=== PATIENT | male | born 1930 | race Caucasian/White ===

== ENCOUNTER 2016-06-11 14:56 | Emergency (ER) | payer MEDICARE, OTHER ==
[2016-06-11 15:23] VITALS: BP 230/82
[2016-06-11] MEDS ORDERED: 50% Dextrose in Water 50 ML Syringe IVPUSH ONE ×3 (16:48→19:05)
--- NOTE | 2016-06-11 17:25 | EDM.PDOC ---
ED HPI GI/ABDOMINAL - General Chief Complaint: Abdominal Pain Stated Complaint: ABDOMINAL PAIN/COLD SWEATS Time Seen by Provider: 06/11/16 15:31 Source of Information: Reports: Patient, RN notes reviewed - History of Present Illness INITIAL COMMENTS - FREE TEXT/NARRATIVE: 85-year-old gentleman reasons to ED with upper abdominal discomfort yesterday. This morning he had an episode of "breaking out in a sweat". He has not had any noticeable abdominal discomfort today. He states he did have some mild nausea yesterday but no vomiting. He did take some Pepto-Bismol yesterday when he was having the abdominal discomfort. He has had one dark stools since that time. No gross rectal bleeding. No chest pain or difficulty breathing. He states he does have history of metastatic prostate cancer. He also does have history of hypertension and type 2 diabetes. - Related Data Allergies/ADRs: Allergies Allergy/AdvReac Type Severity Reaction Status Date / Time Sulfa (Sulfonamide Allergy Itching Verified 06/11/16 15:23 Antibiotics) Home Meds: Home Meds Calcipotriene [Calcitrene] 1 applic TOP BEDTIME 06/11/16 [History] Enzalutamide [Xtandi] 160 mg PO DAILY 06/11/16 [History] glipiZIDE [Glucotrol] 10 mg PO BID 06/11/16 [History] Past Medical History HEENT History: Reports: Impaired vision Cardiovascular History: Reports: Hypertension Gastrointestinal History: Reports: Diverticulosis Genitourinary History: 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 disorder Neurological History: Reports: Other (see below) Other Neuro History: confusion Psychiatric History: Reports: Anxiety, Depression Endocrine/Metabolic History: Reports: Diabetes, type II Oncologic (Cancer) History: 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 Dermatologic History: Reports: Psoriasis - Past Surgical History HEENT Surgical History: Reports: Tonsillectomy Male Surgical History: 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ctomy Social & Family History - Family History Family Medical History: Noncontributory Oncologic: 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, Other (see below) Other Oncologic Family History: melanoma - Tobacco Use Smoking Status *Q: Former Smoker Years of Tobacco use: 16 Packs/Tins Daily: 0.5 Used Tobacco, but Quit: No - Caffeine Use Caffeine Use: Reports: Coffee - Recreational Drug Use Recreational Drug Use: No ED ROS GENERAL - Review of Systems Review Of Systems: See Below Constitutional: Reports: diaphoresis (Mild this past morning and gone). Denies : fever, chills HEENT: Denies: Sinus problem, Throat pain Respiratory: Denies: Shortness of Breath, Wheezing, Pleuritic Chest Pain Cardiovascular: Denies: Chest pain GI/Abdominal: Reports: Abdominal pain (Upper abdominal discomfort yesterday, gone), Nausea (Gone), Other (He has had one dark stool either earlier today her last evening, that was after taking Pepto-Bismol). Denies: Hematochezia, Melena , Vomiting Musculoskeletal: Denies: back pain (nothing worse than usual chronic achy discomfort), leg pain Skin: Reports: no symptoms Neurological: Reports: Weakness (Mild, gone). Denies: Trouble Speaking, Difficulty Walking ED EXAM, GI/ABD - Physical Exam Exam: See Below General Appearance: alert, no apparent distress Eyes: bilateral: normal appearance Throat/Mouth: Normal inspection Head: atraumatic. No: facial swelling Neck: supple, full range of motion, other (No JVD) Respiratory/Chest: no respiratory distress, lungs clear, normal breath sounds Cardiovascular: regular rate, rhythm GI/Abdominal: soft, non tender. No: guarding Rectal (Males) Exam: Normal exam, Heme - stool Back Exam: No: CVA tenderness (L), CVA tenderness (R) Neurological: alert, oriented, no motor/sensory deficits Skin Exam: Warm, Dry, Normal color EKG INTERPRETATION EKG Date: 06/11/16 Rhythm: NSR [place]: normal P-wave: present QRS: normal ST-T: normal Course - Vital Signs Last Recorded V/S: Last Vital Signs Temp 97.0 F 06/11/16 15:18 Pulse 81 06/11/16 15:18 Resp 16 06/11/16 15:18 BP 230/82 H 06/11/16 15:18 Pulse Ox 98 06/11/16 15:18 - Orders/Labs/Meds Orders: Active Orders 24 hr Category Date Time Status EKG 12 Lead [EKG Documentation Completion] [RC] STAT Care 06/11/16 17:24 Active Labs: Laboratory Tests 06/11/16 06/11/16 Range/Units 15:55 15:55 WBC 17.26 H (4.23-9.07) K/mm3 RBC 3.98 L (4.63-6.08) M/mm3 Hgb 11.9 L (13.7-17.5) gm/L Hct 36.0 L (40.1-51.0) % MCV 90.5 (79.0-92.2) fl MCH 29.9 (25.7-32.2) pg MCHC 33.1 (32.2-35.5) g/dl RDW Std Deviation 47.4 H (35.1-43.9) fL Plt Count 161 L (163-337) K/mm3 MPV 11.8 (9.4-12.3) fl Neut % (Auto) 93.6 H (34.0-67.9) % Lymph % (Auto) 1.2 L (21.8-53.1) % [place] % (Auto) 4.8 L (5.3-12.2) % Eos % (Auto) 0 L (0.8-7.0) Baso % (Auto) 0.1 (0.1-1.2) % Neut # (Auto) 16.16 H (1.78-5.38) K/mm3 Lymph # (Auto) 0.21 L (1.32-3.57) K/mm3 [place] # (Auto) 0.83 H (0.30-0.82) K/mm3 Eos # (Auto) 0.00 L (0.04-0.54) K/mm3 Baso # (Auto) 0.01 (0.01-0.08) K/mm3 Manual Slide Review Abnormal smear Sodium 137 (136-145) mEq/L Potassium 3.6 (3.5-5.1) mEq/L Chloride 101 (98-107) mEq/L Carbon Dioxide 25 (21-32) mEq/L Anion Gap 14.6 (5-15) BUN 36 H (7-18) mg/dL Creatinine 1.9 H (0.7-1.3) mg/dL Est Cr Clr Drug Dosing 24.28 mL/min Estimated GFR (MDRD) 34 (>60) mL/min BUN/Creatinine Ratio 18.9 H (14-18) Glucose 54 L (83-115) mg/dL Calcium 9.6 (8.5-10.1) mg/dL Total Bilirubin 1.4 H (0.2-1.0) mg/dL AST 74 H (15-37) U/L ALT 97 H (16-63) U/L Alkaline Phosphatase 124 H (46-116) U/L Total Protein 6.9 (6.4-8.2) g/dl Albumin 3.5 (3.4-5.0) g/dl Globulin 3.4 gm/dL Albumin/Globulin Ratio 1.0 (1-2) Meds: Medications Discontinued Medications Generic Name Dose Route Start Last Admin Trade Name Katerina PRN Reason Stop Dose Admin Dextrose/Water 25 ml 06/11/16 16:48 06/11/16 16:52 Dextrose 50% In Water IVPUSH 06/11/16 16:49 25 ml ONETIME ONE Administration - Re-Assessments/Exams Free Text/Narrative Re-Assessment/Exam: 06/11/16 17:38 labs are as documented. Serum glucose came back low at 54. Therefore he was allowed to drink some orange juice and also given one half amp D50 IV. He has remained alert, sitting, talkative not showing any clinical symptoms of hypoglycemia. Hemoglobin today is 11.9. Creatnine is elevated at 1.9 , CO2 was normal and anion gap also fine at 14.6. Potassium was fine at 3.6. Apparently that has been low in the past. I am waiting on an EKG at this time. That is fine we will then plan to let him go home. Departure - Departure Time of Disposition: 17:44 Disposition: Home, Self-Care 01 Condition: fair Clinical Impression: Abdominal pain Qualifiers: Abdominal location: upper abdomen, unspecified Qualified Code(s): R10.10 - Upper abdominal pain, unspecified Instructions: Abdominal Pain, Adult, [id number] Forms: ED Department Discharge Additional Instructions: Continue current medications, be sure to drink plenty of water to maintain hydration. Ativan one half of a 0.5 mg tablets twice daily as needed for stress and anxiety, followup with your medical provider as planned, return to ED as needed. - My Orders Last 24 Hours: My Active Orders 06/11/16 17:24 EKG 12 Lead [EKG Documentation Completion] [RC] STAT - Assessment/Plan Last 24 Hours: My Active Orders 06/11/16 17:24 EKG 12 Lead [EKG Documentation Completion] [RC] STAT
== END 2016-06-11 19:20 | disposition home or self-care (01) ==
LOC: JD.ED 14:56
DX: R10.10 Upper abdominal pain, unspecified (principal); C61 Malignant neoplasm of prostate; C79.9 Secondary malignant neoplasm of unspecified site; Z88.2 Allergy status to sulfonamides; I10 Essential (primary) hypertension; E11.649 Type 2 diabetes mellitus with hypoglycemia without coma; Z79.84 Long term (current) use of oral hypoglycemic drugs; F32.9 Major depressive disorder, single episode, unspecified; F41.9 Anxiety disorder, unspecified; Z79.899 Other long term (current) drug therapy
CPT/HCPCS: 36415; 80053; 82962; 85025; 93005; 96374; 96376; 99284; J7060

== ENCOUNTER 2016-06-21 07:40 | Emergency (ER) | payer MEDICARE, OTHER ==
[2016-06-21 07:49] VITALS: BP 199/69
--- NOTE | 2016-06-21 08:02 | EDM.PDOC ---
ED HPI GI/ABDOMINAL - General Chief Complaint: Abdominal Pain Stated Complaint: GALLBLADDER ISSUES- SENT BY DR. REYES Time Seen by Provider: 06/21/16 07:51 - History of Present Illness INITIAL COMMENTS - FREE TEXT/NARRATIVE: 85-year-old male presents emergency room with abdominal pain, difficulty eating and low blood sugar. The patient has had intermittent gallbladder problems for quite some time however this is become more sustained over the last week and a half. Yesterday he had a gallbladder ultrasound done which apparently showed a large stone that was thought to be causing his problems. This was done the [facility], and at this time we are awaiting an ultrasound report. The patient has type 2 diabetes and has not been eating because when he eats within 30 minutes he developed severe right upper quadrant pain. He's had problems maintaining his blood sugars and is off his oral diabetes medications in an attempt to keep his blood sugars up. At this time family is upset because he just can't eat without pain in 7 difficulty controlling his blood sugars and they would like the gallbladder removed as soon as possible. He was seen by Dr. Peterson who is not able to remove the gallbladder until Friday at the soonest. Patient is currently treated for his hypertension type 2 diabetes prostate cancer post prostatectomy and he is on testosterone replacement. - Related Data Allergies/ADRs: Allergies Allergy/AdvReac Type Severity Reaction Status Date / Time Sulfa (Sulfonamide Allergy Itching Verified 06/21/16 07:45 Antibiotics) Home Meds: Home Meds Aspirin 81 mg PO DAILY 06/11/16 [History] Calcipotriene [Calcitrene] 1 applic TOP BEDTIME 06/11/16 [History] Calcium Carbonate/Vitamin D3 [Calcium 600 + Vit D 200] 1 tab PO DAILY 06/11/16 [ History] Cholecalciferol (Vitamin D3) [Vitamin D3] 1,000 unit PO BID 06/11/16 [History] Clobetasol [Clobetasol 0.05%] 1 applic TOP ASDIRECTED 06/11/16 [History] Enzalutamide [Xtandi] 160 mg PO DAILY 06/11/16 [History] Lisinopril [Zestril] 40 mg PO DAILY 06/11/16 [History] Metoprolol Succinate 50 mg PO DAILY 06/11/16 [History] Simvastatin [Zocor] 40 mg PO BEDTIME 06/11/16 [History] cloNIDine [Catapres] 0.2 mg PO DAILY 06/11/16 [History] glipiZIDE [Glucotrol] 5 mg PO BID 06/11/16 [History] LORazepam [Ativan] 0.25 mg PO BID 06/21/16 [History] LORazepam [Ativan] 1 mg PO BID PRN 06/21/16 [History] Triamterene 50 mg PO DAILY 06/21/16 [History] Past Medical History HEENT History: Reports: Impaired vision Cardiovascular History: Reports: Hypertension Gastrointestinal History: Reports: Diverticulosis Genitourinary History: 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 disorder Neurological History: Reports: Other (see below) Other Neuro History: confusion Psychiatric History: Reports: Anxiety, Depression Endocrine/Metabolic History: Reports: Diabetes, type II Oncologic (Cancer) History: 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 Dermatologic History: Reports: Psoriasis - Past Surgical History HEENT Surgical History: Reports: Tonsillectomy Male Surgical History: 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ctomy Social & Family History - Family History Family Medical History: Noncontributory Oncologic: 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, Other (see below) Other Oncologic Family History: melanoma - Tobacco Use Smoking Status *Q: Former Smoker Years of Tobacco use: 16 Packs/Tins Daily: 0.5 Used Tobacco, but Quit: No - Caffeine Use Caffeine Use: Reports: Coffee - Recreational Drug Use Recreational Drug Use: No ED ROS GENERAL - Review of Systems Review Of Systems: See Below Constitutional: Denies: fever, chills HEENT: Reports: No symptoms Respiratory: Reports: No Symptoms Cardiovascular: Reports: No symptoms GI/Abdominal: Reports: Abdominal pain, Anorexia, Decreased appetite, Nausea, Vomiting. Denies: Constipation, Diarrhea : Reports: no symptoms Musculoskeletal: Reports: no symptoms Skin: Reports: no symptoms Neurological: Reports: No Symptoms ED EXAM, GI/ABD - Physical Exam Exam: See Below Exam Limited By: No limitations General Appearance: alert, no apparent distress Head: atraumatic, normocephalic Neck: normal inspection, supple, non-tender, full range of motion. No: lymphadenopathy (L), lymphadenopathy (R) Respiratory/Chest: no respiratory distress, lungs clear, normal breath sounds Cardiovascular: regular rate, rhythm, no edema, no murmur GI/Abdominal: normal bowel sounds, soft, no organomegaly. No: non tender, distention, guarding, rebound, rigidity Extremities: normal inspection, pedal edema (Trace lower extremity edema pitting in nature) Neurological: alert, oriented Course - Vital Signs Last Recorded V/S: Last Vital Signs Temp 36.2 C 06/21/16 07:46 Pulse 89 06/21/16 07:46 Resp 18 06/21/16 07:46 BP 199/69 H 06/21/16 07:46 Pulse Ox 94 L 06/21/16 07:46 - Orders/Labs/Meds Orders: Active Orders 24 hr Category Date Time Status Dextrose 5%-0.45% NaCl [Dextrose 5%-1/2 NS] 1,000 ml Med 06/21/16 08:15 Active IV ASDIRECTED Medication Orders Dextrose/Sodium Chloride (Dextrose 5%-1/2 Ns) 1,000 mls @ 75 mls/hr IV ASDIRECTED JESU Last Admin: 06/21/16 08:18 Dose: 75 mls/hr Labs: Laboratory Tests 06/21/16 06/21/16 06/21/16 Range/Units 07:55 07:55 10:00 WBC 16.86 H (4.23-9.07) K/mm3 RBC 4.16 L (4.63-6.08) M/mm3 Hgb 12.3 L (13.7-17.5) gm/L Hct 38.0 L (40.1-51.0) % MCV 91.3 (79.0-92.2) fl MCH 29.6 (25.7-32.2) pg MCHC 32.4 (32.2-35.5) g/dl RDW Std Deviation 46.7 H (35.1-43.9) fL Plt Count 294 (163-337) K/mm3 MPV 11.2 (9.4-12.3) fl Neutrophils % (Manual) 79 H (40-60) % Band Neutrophils % 1 (0-10) % Lymphocytes % (Manual) 16 L (20-40) % Atypical Lymphs % 0 % Monocytes % (Manual) 3 (2-10) % Eosinophils % (Manual) 0 L (0.8-7.0) % Basophils % (Manual) 1 (0.2-1.2) Platelet Estimate Adequate RBC Morph Comment Normal Sodium 136 (136-145) mEq/L Potassium 4.0 (3.5-5.1) mEq/L Chloride 99 (98-107) mEq/L Carbon Dioxide 27 (21-32) mEq/L Anion Gap 14.0 (5-15) BUN 19 H (7-18) mg/dL Creatinine 1.4 H (0.7-1.3) mg/dL Est Cr Clr Drug Dosing TNP Estimated GFR (MDRD) 48 (>60) mL/min BUN/Creatinine Ratio 13.6 L (14-18) Glucose 139 H (83-115) mg/dL Calcium 9.6 (8.5-10.1) mg/dL Total Bilirubin 0.9 (0.2-1.0) mg/dL Direct Bilirubin 0.30 H (0.0-0.2) mg/dl Indirect Bilirubin 0.60 AST 21 (15-37) U/L ALT 42 (16-63) U/L Alkaline Phosphatase 169 H (46-116) U/L Total Protein 7.0 (6.4-8.2) g/dl Albumin 3.4 (3.4-5.0) g/dl Globulin 3.6 gm/dL Albumin/Globulin Ratio 0.9 L (1-2) Lipase 2006 H (73-393) U/L Urine Color Light yellow (Yellow) Urine Appearance Clear (Clear) Urine pH 7.5 (5.0-8.0) Ur Specific [place] 1.020 (1.005-1.030) Urine Protein 1+ H (Negative) Urine Glucose (UA) Negative (Negative) Urine Ketones Negative (Negative) Urine Occult Blood Negative (Negative) Urine Nitrite Negative (Negative) Urine Bilirubin Negative (Negative) Urine Urobilinogen 0.2 (0.2-1.0) Ur Leukocyte Esterase Negative (Negative) Urine RBC 0-5 (0-5) /hpf Urine WBC 0-5 (0-5) /hpf Ur Epithelial Cells Not Reportable Ur Squamous Epith Cells 0-5 (0-5) /hpf Urine Bacteria Few (FEW) /hpf Urine Mucus Not seen (FEW) /hpf Meds: Medications Generic Name Dose Route Start Last Admin Trade Name Freq PRN Reason Stop Dose Admin Dextrose/Sodium Chloride 1,000 mls @ 75 mls/hr 06/21/16 08:15 06/21/16 08:18 Dextrose 5%-1/2 Ns IV 75 mls/hr ASDIRECTED JESU Administration Discontinued Medications Generic Name Dose Route Start Last Admin Trade Name Katerina PRN Reason Stop Dose Admin Diatrizoate Meglum/Diatrizoate Sod 120 ml 06/21/16 09:16 06/21/16 10:29 Gastrografin 37% PO 06/21/16 09:17 90 ml ONETIME ONE Administration Hydromorphone HCl 0.5 mg 06/21/16 08:11 06/21/16 08:19 Dilaudid IVPUSH 06/21/16 08:12 0.5 mg ONETIME ONE Administration Sodium Chloride 250 mls @ 500 mls/hr 06/21/16 09:11 06/21/16 09:18 Normal Saline IV 06/21/16 09:40 500 mls/hr .BOLUS ONE Administration Iopamidol 100 ml 06/21/16 09:16 06/21/16 10:29 Isovue-300 (61%) IVPUSH 06/21/16 09:17 100 ml ONETIME ONE Administration Ondansetron HCl 4 mg 06/21/16 08:11 06/21/16 08:18 Zofran IVPUSH 06/21/16 08:12 4 mg ONETIME ONE Administration Sodium Chloride 10 ml 06/21/16 09:16 06/21/16 10:29 Saline Flush FLUSH 06/21/16 09:17 10 ml ONETIME ONE Administration - Re-Assessments/Exams Free Text/Narrative Re-Assessment/Exam: 06/21/16 08:24 Patient will be started on D5 half at 75 cc an hour while awaiting labs. He'll be given 0.5 mg of Dilaudid for discomfort 4 mg Zofran for nausea. 06/21/16 08:42 Starting to come in. Patient is slightly prerenal of note his lipase is 2006. Gallbladder ultrasound done yesterday shows a gallbladder consistent with stones the common duct measures 2 mm the gallbladder wall thickness of 3 mm I am waiting for CT done on the of this month. 06/21/16 09:15 Labs and clinical situation reviewed with Dr. Uribe personal caregiver surgeon, also reviewed his gallbladder ultrasound done yesterday and is CAT scan done the . She recommends admission n.p.o. treatment for pancreatitis we will obtain a CAT scan at this time with the elevated lipase. 06/21/16 11:54 I was contacted by Dr. Pagan who saw the patient in the office yesterday he has concerns about the patient's underlying cardiovascular status and potential comorbidities at his age doing surgery in [place]. He did have the opportunity to discuss the situation Dr. Uribe. The patient has decreased exercise tolerance albeit he is not have any chest pain or angina at this time. He an EKG done in this hospital on his last visit about a week ago. Case discussed with Dr. Alvarez the hospitalist at [facility] who will admit the patient with his pancreatitis. I was not able to discuss the case with Dr. Makayla headley the personal caregiver surgeon that she was in surgery but one call did discuss with her and she is in agreement and will be available to help with the case the case was also discussed with gastroenterology who will be available to help. Case discussed with the patient and his daughter they are in agreement to going. CODE STATUS discussed with the daughter who has power of associate attorney. The patient does not want CPR however he wants treatable things treated. Departure - Departure Time of Disposition: 09:16 Disposition: DC/Tfer to [facility] 02 Clinical Impression: Cholelithiasis, Pancreatitis Referrals: David Reyes Jr, MD [Primary Care Provider] - Forms: ED Department Discharge - My Orders Last 24 Hours: My Active Orders 06/21/16 08:15 Dextrose 5%-0.45% NaCl [Dextrose 5%-1/2 NS] 1,000 ml IV ASDIRECTED - Assessment/Plan Last 24 Hours: My Active Orders 06/21/16 08:15 Dextrose 5%-0.45% NaCl [Dextrose 5%-1/2 NS] 1,000 ml IV ASDIRECTED
[2016-06-21] MEDS ORDERED: Ondansetron 4 MG/2 ML SDV IVPUSH ONE (08:11)
[2016-06-21] MEDS ORDERED: HYDROmorphone 1 MG/ML Syringe IVPUSH ONE (08:11)
[2016-06-21] MEDS ORDERED: Dextrose 5%-0.45% NaCl 1,000 ML IV SCH (08:15)
[2016-06-21] MEDS ORDERED: Sodium Chloride 0.9% 250 ML IV ONE (09:11)
[2016-06-21] MEDS ORDERED: Iopamidol 612 MG/ML 100 ML Bottle IVPUSH ONE (09:16)
[2016-06-21] MEDS ORDERED: Sodium Chloride 0.9% 10 ML Syringe FLUSH ONE (09:16)
[2016-06-21] MEDS ORDERED: Diatrizoate Meglumine/Diatrizoate Sodium 37% 120 ML Bottle PO ONE (09:16)
--- NOTE | 2016-06-21 10:58 | CT ---
Addendum: Original report mention nothing about the pancreas. Pancreas appears normal. No significant inflammatory change is seen to indicate definite pancreatitis. --- Addendum1 above dictated on [06/21/2016 11:26] by [Seth Aguila Hilton J.] --- --- Addendum1 above signed on [06/21/2016 11:27] by [Seth Aguila Hilton J.] --- --- Original report below dictated on [06/21/2016 10:47] by [Seth Aguila Hilton J.] --- --- Original report below signed on [06/21/2016 10:55] by [Seth Aguila Hilton J.] --- CT abdomen and pelvis Technique: Multiple axial sections were obtained from above the dome of the diaphragm inferiorly through the pubic symphysis. Intravenous and oral contrast was utilized. Comparison: Previous CT abdomen and pelvis exam of 06/17/16. Findings: Small portion of the visualized lung bases shows nothing acute. Liver shows no focal parenchymal abnormality. Several intraluminal abnormalities are seen within the gallbladder presumably due to gallstones. Spleen appears within normal limits. Nodule noted within the right adrenal gland which is nonspecific regarding etiology but measures 1.8 cm. Nodule noted within the left adrenal gland which measures 2.1 cm in size. Cyst noted within the right kidney measuring 1.5 cm. Small lower pole cyst is noted within the left kidney measuring 7 mm. Kidneys are otherwise unremarkable. Aorta shows mild ectasia with maximum AP dimension of 2.2 cm. Atherosclerotic change is noted within the aorta and iliac vessels. No retroperitoneal adenopathy or mesenteric abnormalities are seen. Appendix is seen and appears to be normal. Diverticuli are seen within the descending and sigmoid colon with no inflammatory change to indicate diverticulitis. Surgical clips are seen compatible with previous prostatectomy. Haziness noted within portions of the anterior abdominal wall fat presumably representing change from previous abdominal wall injections. Coronary artery calcification is seen. Degenerative change noted throughout the spine. Spondylolisthesis noted at L5-S1 due to spondylitic defects. Several sclerotic areas are seen within the vertebral bodies located within the thoracic and lumbar spine. Difficult to exclude mild areas of sclerotic metastasis most likely from prostate cancer. Impression: 1. 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 2. Bilateral adrenal masses which could be metastatic versus bilateral adrenal adenomas. 3. Incidental renal cysts. Calcified gallstones are seen within the gallbladder. 4. Other incidental findings. Diagnostic code #9 --- Addendum1 signed ---
== END 2016-06-21 12:30 ==
LOC: JD.ED 07:40
DX: K85.90 Acute pancreatitis without necrosis or infection, unspecified (principal); K80.20 Calculus of gallbladder without cholecystitis without obstruction; I10 Essential (primary) hypertension; E11.9 Type 2 diabetes mellitus without complications; Z79.899 Other long term (current) drug therapy; Z87.891 Personal history of nicotine dependence; Z88.2 Allergy status to sulfonamides
CPT/HCPCS: 36415; 74177; 80048; 80076; 81001; 83690; 85025; 96361; 96374; 96375; 99285; J1170; J2405; J7040; J7042; J7050; Q9963; Q9967

== ENCOUNTER 2016-12-11 04:54 | Emergency (ER) | payer MEDICARE, OTHER ==
[2016-12-11 05:03] VITALS: BP 224/71
--- NOTE | 2016-12-11 05:38 | EDM.PDOC ---
ED HPI GENERAL MEDICAL PROBLEM - General Chief Complaint: General Stated Complaint: NO AMBULANCE Time Seen by Provider: 12/11/16 05:04 Source of Information: Reports: Patient, Family (Daughter), RN Notes Reviewed History Limitations: Reports: No Limitations - History of Present Illness INITIAL COMMENTS - FREE TEXT/NARRATIVE: The patient states that he developed vertigo about 24 hours ago. He finds that the vertigo comes and goes depending on whether or not he is moving his head. If he remains perfectly still, his symptoms go away. When he is feeling vertiginous, he has some diaphoresis and nausea. He states that his symptoms largely resolved yesterday, but recurred again this morning when he got up to go to the bathroom. He states that he had similar symptoms about 3 years ago, but the episodes were relatively short in duration, and he did not seek medical evaluation. No recent fever. The patient denies having a headache or blurry vision. He denies feeling lightheaded. Other than vertigo, the patient denies any neurologic symptoms such as tingling, numbness, weakness, or difficulty speaking. The patient's PCP is Dr. Reyes. The patient does not have an ENT. - Related Data Allergies Allergy/AdvReac Type Severity Reaction Status Date / Time Sulfa (Sulfonamide Allergy Itching Verified 12/11/16 05:04 Antibiotics) Home Meds: Home Meds Aspirin 81 mg PO DAILY 06/11/16 [History] Calcipotriene [Calcitrene] 1 applic TOP BEDTIME PRN 06/11/16 [History] Calcium Carbonate/Vitamin D3 [Calcium 600 + Vit D 200] 1 tab PO DAILY 06/11/16 [ History] Cholecalciferol (Vitamin D3) [Vitamin D3] 1,000 unit PO BID 06/11/16 [History] Clobetasol [Clobetasol 0.05%] 1 applic TOP ASDIRECTED 06/11/16 [History] Enzalutamide [Xtandi] 40 mg PO DAILY 06/11/16 [History] Lisinopril [Zestril] 40 mg PO DAILY 06/11/16 [History] Metoprolol Succinate 50 mg PO DAILY 06/11/16 [History] Simvastatin [Zocor] 40 mg PO DAILY 06/11/16 [History] cloNIDine [Catapres] 0.2 mg PO BEDTIME 06/11/16 [History] glipiZIDE [Glucotrol] 5 mg PO BID 06/11/16 [History] LORazepam [Ativan] 1 mg PO BID PRN 06/21/16 [History] Triamterene 50 mg PO DAILY 06/21/16 [History] Past Medical History HEENT History: Reports: Impaired Vision Cardiovascular History: Reports: High Cholesterol, Hypertension Gastrointestinal History: Reports: Diverticulosis, GERD, Pancreatitis Psychiatric History: Reports: Anxiety, Depression Endocrine/Metabolic History: Reports: Diabetes, Type II Oncologic (Cancer) History: 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, Squamous Cell Carcinoma (face) Dermatologic History: Reports: Psoriasis, Other (See Below) (Vitiligo) - Past Surgical History HEENT Surgical History: Reports: Cataract Surgery, Oral Surgery (Strong teeth extraction), Tonsillectomy GI Surgical History: Reports: Cholecystectomy Male Surgical History: 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ctomy Dermatological Surgical History: Reports: Other (See Below) (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) Social & Family History - Family History Family Medical History: Noncontributory Oncologic: 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, Other (See Below) Other Oncologic Family History: melanoma - Tobacco Use Smoking Status *Q: Former Smoker Years of Tobacco use: 42 Packs/Tins Daily: 1 Month Tobacco Last Used: Quit 1992 - Caffeine Use Caffeine Use: Reports: None - Alcohol Use Alcohol Use History: Yes Alcohol Use Frequency: Rarely - Recreational Drug Use Recreational Drug Use: No - Living Situation & Occupation Living situation: Reports: , with Spouse, Assisted Living Occupation: Retired ED ROS GENERAL - Review of Systems Review Of Systems: See Below Constitutional: Reports: No Symptoms HEENT: Reports: No Symptoms Respiratory: Reports: No Symptoms Cardiovascular: Reports: No Symptoms Endocrine: Reports: No Symptoms GI/Abdominal: Reports: No Symptoms : Reports: No Symptoms Musculoskeletal: Reports: No Symptoms Skin: Reports: No Symptoms Neurological: Reports: No Symptoms Psychiatric: Reports: No Symptoms Hematologic/Lymphatic: Reports: No Symptoms Immunologic: Reports: No Symptoms ED EXAM, GENERAL - Physical Exam Exam: See Below Exam Limited By: No Limitations General Appearance: Alert, WD/WN, No Apparent Distress Eye Exam: Bilateral Eye: EOMI, Normal Inspection Ears: Normal External Exam, Normal Canal, Hearing Grossly Normal, Normal TMs Nose: Normal Inspection, Normal Mucosa, No Blood Throat/Mouth: Normal Inspection, Normal Lips, Normal Voice, No Airway Compromise Head: Atraumatic, Normocephalic Neck: Normal Inspection, Limited Range of Motion Respiratory/Chest: No Respiratory Distress, Lungs Clear, Normal Breath Sounds, No Accessory Muscle Use Cardiovascular: Normal Peripheral Pulses, Regular Rate, Rhythm, No Gallop, No JVD, No Murmur, No Rub Peripheral Pulses: 4+: Radial (L), Radial (R) GI/Abdominal: Normal Bowel Sounds, Soft, Non-Tender, No Organomegaly, No Distention, No Abnormal Bruit, No Mass (Male) Exam: Deferred Rectal (Males) Exam: Deferred Back Exam: Normal Inspection, Full Range of Motion, NT Extremities: Normal Inspection, Normal Range of Motion, No Pedal Edema, Normal Capillary Refill Neurological: Alert, Oriented, Normal Cognition, Normal Gait (uses a walker, took small steps), No Motor/Sensory Deficits, Other (Given the patient's age and generally frail condition, full [place] maneuvers were not performed, however, neither symptoms nor nystagmus were induced with the patient sitting up or turning his head. At one point the patient walked to the bathroom and back , and reported that he felt vertiginous while sitting down on the toilet, however, his symptoms had resolved by the time he returned to his room.) Psychiatric: Normal Affect Skin Exam: Warm, Dry, Intact, Normal Color, No Rash Course - Vital Signs Last Recorded V/S: Last Vital Signs Temp 36.4 C 12/11/16 04:58 Pulse 67 12/11/16 04:58 Resp 28 H 12/11/16 04:58 BP 224/71 H 12/11/16 04:58 Pulse Ox 95 12/11/16 04:58 - Orders/Labs/Meds Orders: Active Orders 24 hr Category Date Time Status Accu Check [Blood Glucose Check, Bedside] [RC] ONETIME Care 12/11/16 05:38 Active Labs: Laboratory Tests 12/11/16 Range/Units 05:44 POC Glucose 103 (83-110) mg/dL - Re-Assessments/Exams Free Text/Narrative Re-Assessment/Exam: 12/11/16 05:39 Clinically, the patient has BPPV, even though he is asymptomatic at this moment , and I was unable to induce either symptoms or nystagmus. The patient had to urinate, and went to the bathroom, and tells me that he became vertiginous as he sat on the toilet, but it had resolved by the time he returned to his room. I will refer the patient to ENT for further evaluation and treatment. The patient's daughter wondered if I should be prescribing meclizine. I had discussed this with the patient prior to the daughter's arrival. Meclizine might help with his vertiginous symptoms, but, given his prostate issues, will likely cause significant urinary issues, as well as confusion, given the patient 's age. I think, on balance, that meclizine is not in the patient's best interest and I'm recommending against it. This did not seem to sit well with the patient's daughter, despite my explanation. I also offered the patient Zofran, but he declined it. The patient's daughter wondered if this could be do to hypoglycemia. I explained that hypoglycemia does not cause positional vertigo , and the patient is not describing any other symptoms that would be consistent with hypoglycemia, however, I have ordered an Accu-Chek to hopefully satisfy the patient's daughter. 12/11/16 05:46 The patient's Accu-Chek is 103. Departure - Departure Time of Disposition: 05:42 Disposition: Home, Self-Care 01 Condition: Good Clinical Impression: BPPV (benign paroxysmal positional vertigo) - Discharge Information Instructions: Benign Positional Vertigo Referrals: David Reyes Jr, MD [Primary Care Provider] - Kendrick Henry MD [Physician] - Forms: ED Department Discharge Additional Instructions: You were seen in the emergency room for symptoms of the room spinning and nausea that come and go depending on your head position. This condition is called positional vertigo, and is due to the blockage of one of the tiny tubes in your inner ear. Because of your age and prostate issues, the anti-dizzy medicine meclizine was not recommended. You were offered a prescription for some anti-nausea medicine, but declined. Be very careful when you stand up and walk around, to make sure that you do not fall. Follow-up with the ENT Dr. Henry to determine which of the tubes is blocked, and to recommend the appropriate maneuvers to unblock it. If any other problems, please do not hesitate to return to the ER. - My Orders Last 24 Hours: My Active Orders 12/11/16 05:38 Accu Check [Blood Glucose Check, Bedside] [RC] ONETIME - Assessment/Plan Last 24 Hours: My Active Orders 12/11/16 05:38 Accu Check [Blood Glucose Check, Bedside] [] ONETIME
== END 2016-12-11 06:15 | disposition home or self-care (01) ==
LOC: JD.ED 04:54
DX: H81.10 Benign paroxysmal vertigo, unspecified ear (principal); E78.00 Pure hypercholesterolemia, unspecified; I10 Essential (primary) hypertension; K21.9 Gastro-esophageal reflux disease without esophagitis; E11.9 Type 2 diabetes mellitus without complications; F41.9 Anxiety disorder, unspecified; F32.9 Major depressive disorder, single episode, unspecified; Z88.2 Allergy status to sulfonamides; Z79.899 Other long term (current) drug therapy; Z79.82 Long term (current) use of aspirin; Z87.891 Personal history of nicotine dependence
CPT/HCPCS: 82962; 99283; 99284

== ENCOUNTER 2017-01-14 04:00 | Emergency (ER) | payer MEDICARE, OTHER ==
[2017-01-14] MEDS ORDERED: Sodium Chloride 0.9% 10 ML Syringe FLUSH PRN (04:10)
[2017-01-14] MEDS ORDERED: cloNIDine 0.1 MG Tab PO ONE (04:21)
--- NOTE | 2017-01-14 04:27 | EDM.PDOC ---
ED HPI GENERAL MEDICAL PROBLEM - General Chief Complaint: Gastrointestinal Problem Stated Complaint: NO AMBULANCE Time Seen by Provider: 01/14/17 04:10 Source of Information: Reports: Patient, RN Notes Reviewed - History of Present Illness INITIAL COMMENTS - FREE TEXT/NARRATIVE: 86-year-old male has been brought in by [email or web address] for evaluation of nausea vomiting and diarrhea. He states he had onset of nausea about 7 hours ago and then did start vomiting not too long after that. He has had multiple episodes of vomiting now early this morning and also multiple episodes of watery diarrhea. He was given IV Zofran by paramedics while in route to the hospital. Is no longer vomiting the still does feel somewhat nauseated. Did have some abdominal cramps earlier but those are currently gone. No chest pain or difficulty breathing. 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 - Related Data Allergies Allergy/AdvReac Type Severity Reaction Status Date / Time Sulfa (Sulfonamide Allergy Itching Verified 01/14/17 04:03 Antibiotics) Home Meds: Home Meds Aspirin 81 mg PO DAILY 06/11/16 [History] Calcipotriene [Calcitrene] 1 applic TOP BEDTIME PRN 06/11/16 [History] Calcium Carbonate/Vitamin D3 [Calcium 600 + Vit D 200] 1 tab PO DAILY 06/11/16 [ History] Enzalutamide [Xtandi] 160 mg PO DAILY 06/11/16 [History] Lisinopril [Zestril] 20 mg PO DAILY 06/11/16 [History] Metoprolol Succinate 50 mg PO DAILY 06/11/16 [History] Simvastatin [Zocor] 40 mg PO DAILY 06/11/16 [History] cloNIDine [Catapres] 0.2 mg PO BEDTIME 06/11/16 [History] LORazepam [Ativan] 1 mg PO BID PRN 06/21/16 [History] Triamterene 50 mg PO DAILY 06/21/16 [History] Clotrimazole/Betamethasone Dip [Lotrisone Cream] 1 dose TOP ASDIRECTED PRN 01/14 [History] Levofloxacin [Levaquin] 250 mg PO DAILY #3 tablet 01/14/17 [Rx] Omeprazole 20 mg PO DAILY 01/14/17 [History] Ondansetron [Zofran ODT] 4 mg PO Q6H PRN #7 tab.dis 01/14/17 [Rx] Past Medical History HEENT History: Reports: Impaired Vision Cardiovascular History: Reports: High Cholesterol, Hypertension Gastrointestinal History: Reports: Diverticulosis, GERD, Pancreatitis Other Gastrointestinal History: cholecystitis Genitourinary History: Reports: Chronic Renal Insuffiency Neurological History: Reports: Other (See Below) Other Neuro History: confusion Psychiatric History: Reports: Anxiety, Depression Endocrine/Metabolic History: Reports: Diabetes, Type II Hematologic History: Reports: Blood Transfusion(s) Oncologic (Cancer) History: 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, Squamous Cell Carcinoma Other Oncologic History: skin cancer Dermatologic History: Reports: Psoriasis, Other (See Below) Other Dermatologic History: vitiligo - Past Surgical History HEENT Surgical History: Reports: Cataract Surgery, Oral Surgery, Tonsillectomy GI Surgical History: Reports: Cholecystectomy Male Surgical History: 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ctomy Dermatological Surgical History: Reports: Other (See Below) Social & Family History - Family History Family Medical History: Noncontributory Oncologic: 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, Other (See Below) Other Oncologic Family History: melanoma - Tobacco Use Smoking Status *Q: Former Smoker Years of Tobacco use: 42 Packs/Tins Daily: 1 Used Tobacco, but Quit: Yes Month Tobacco Last Used: 1994 - Caffeine Use Caffeine Use: Reports: None - Recreational Drug Use Recreational Drug Use: No - Living Situation & Occupation Living situation: Reports: , with Spouse, Assisted Living Occupation: Retired ED ROS GENERAL - Review of Systems Review Of Systems: See Below Constitutional: Denies: Fever, Chills, Diaphoresis Respiratory: Denies: Shortness of Breath Cardiovascular: Denies: Chest Pain GI/Abdominal: Reports: Abdominal Pain (He did have some upper abdominal cramping , currently gone), Diarrhea (Frequent watery episodes), Nausea, Vomiting Musculoskeletal: Denies: Leg Pain Skin: Reports: No Symptoms Neurological: Reports: Dizziness (Mild). Denies: Numbness, Tingling, Trouble Speaking ED EXAM, GI/ABD - Physical Exam Exam: See Below General Appearance: Alert, No Apparent Distress Eyes: Bilateral: Normal Appearance Throat/Mouth: Normal Inspection, Normal Oropharynx Head: Atraumatic. No: Facial Swelling Neck: Supple Respiratory/Chest: No Respiratory Distress, Lungs Clear, Normal Breath Sounds Cardiovascular: Regular Rate, Rhythm GI/Abdominal Exam: Soft, Non-Tender. No: Guarding Back Exam: No: CVA Tenderness (L), CVA Tenderness (R) Extremities: Normal Inspection, Normal Range of Motion Neurological: Alert, Oriented, No Motor/Sensory Deficits Skin Exam: Warm, Dry, Normal Color Course - Vital Signs Last Recorded V/S: Last Vital Signs Temp 97.2 F 01/14/17 04:03 Pulse 72 01/14/17 04:03 Resp 14 01/14/17 04:03 BP 217/83 H 01/14/17 06:24 Pulse Ox 98 01/14/17 04:03 - Orders/Labs/Meds Orders: Active Orders 24 hr Category Date Time Status Peripheral IV Care [RC] . DIRECTED Care 01/14/17 04:10 Active Dextrose 5%-0.45% NaCl [Dextrose 5%-1/2 NS] 1,000 ml Med 01/14/17 04:30 Active IV ASDIRECTED Levofloxacin/Dextrose 5%-Water [Levaquin in D5W 500 MG/ Med 01/14/17 05:56 Active 100 ML] 500 mg Premix Bag 1 bag IV ONETIME Sodium Chloride 0.9% [Saline Flush] Med 01/14/17 04:10 Active 10 ml FLUSH ASDIRECTED PRN Peripheral IV Insertion Adult [OM.PC] Stat Oth 01/14/17 04:10 Ordered Medication Orders Dextrose/Sodium Chloride (Dextrose 5%-1/2 Ns) 1,000 mls @ 150 mls/hr IV ASDIRECTED JESU Last Admin: 01/14/17 04:28 Dose: 150 mls/hr Levofloxacin/Dextrose 500 mg/ (Premix) 100 mls @ 100 mls/hr IV ONETIME ONE Stop: 01/14/17 06:55 Last Admin: 01/14/17 06:20 Dose: 100 mls/hr Sodium Chloride (Saline Flush) 10 ml FLUSH ASDIRECTED PRN PRN Reason: Keep Vein Open Last Admin: 01/14/17 04:28 Dose: 10 ml Labs: Laboratory Tests 01/14/17 01/14/17 Range/Units 04:25 04:25 WBC 15.14 H (4.23-9.07) K/mm3 RBC 3.94 L (4.63-6.08) M/mm3 Hgb 12.4 L (13.7-17.5) gm/L Hct 37.1 L (40.1-51.0) % MCV 94.2 H (79.0-92.2) fl MCH 31.5 (25.7-32.2) pg MCHC 33.4 (32.2-35.5) g/dl RDW Std Deviation 44.8 H (35.1-43.9) fL Plt Count 236 (163-337) K/mm3 MPV 11.1 (9.4-12.3) fl Neut % (Auto) 91.3 H (34.0-67.9) % Lymph % (Auto) 1.0 L (21.8-53.1) % [place] % (Auto) 5.9 (5.3-12.2) % Eos % (Auto) 1.5 (0.8-7.0) Baso % (Auto) 0.1 (0.1-1.2) % Neut # (Auto) 13.82 H (1.78-5.38) K/mm3 Lymph # (Auto) 0.15 L (1.32-3.57) K/mm3 [place] # (Auto) 0.90 H (0.30-0.82) K/mm3 Eos # (Auto) 0.22 (0.04-0.54) K/mm3 Baso # (Auto) 0.02 (0.01-0.08) K/mm3 Manual Slide Review Abnormal smear Sodium 142 (136-145) mEq/L Potassium 3.9 (3.5-5.1) mEq/L Chloride 107 (98-107) mEq/L Carbon Dioxide 25 (21-32) mEq/L Anion Gap 13.9 (5-15) BUN 41 H (7-18) mg/dL Creatinine 1.6 H (0.7-1.3) mg/dL Est Cr Clr Drug Dosing 27.24 mL/min Estimated GFR (MDRD) 41 (>60) mL/min BUN/Creatinine Ratio 25.6 H (14-18) Glucose 142 H (83-115) mg/dL Calcium 9.3 (8.5-10.1) mg/dL Total Bilirubin 0.6 (0.2-1.0) mg/dL AST 14 L (15-37) U/L ALT 11 L (16-63) U/L Alkaline Phosphatase 93 (46-116) U/L Total Protein 6.7 (6.4-8.2) g/dl Albumin 3.4 (3.4-5.0) g/dl Globulin 3.3 gm/dL Albumin/Globulin Ratio 1.0 (1-2) Meds: Medications Generic Name Dose Route Start Last Admin Trade Name Katerina PRN Reason Stop Dose Admin Dextrose/Sodium Chloride 1,000 mls @ 150 mls/hr 01/14/17 04:30 01/14/17 04:28 Dextrose 5%-1/2 Ns IV 150 mls/hr ASDIRECTED JESU Administration Levofloxacin/Dextrose 500 mg/ 100 mls @ 100 mls/hr 01/14/17 05:56 01/14/17 06 :20 Premix IV 01/14/17 06:55 100 mls/hr ONETIME ONE Administration Sodium Chloride 10 ml 01/14/17 04:10 01/14/17 04:28 Saline Flush FLUSH 10 ml ASDIRECTED PRN Administration Keep Vein Open Discontinued Medications Generic Name Dose Route Start Last Admin Trade Name Katerina PRN Reason Stop Dose Admin Clonidine HCl 0.1 mg 01/14/17 04:21 01/14/17 06:24 Catapres PO 01/14/17 04:22 Not Given ONETIME ONE Metoclopramide HCl 5 mg 01/14/17 05:57 01/14/17 06:20 Reglan IVPUSH 01/14/17 05:58 5 mg ONETIME ONE Administration - Re-Assessments/Exams Free Text/Narrative Re-Assessment/Exam: 01/14/17 06:00. Continues to have no abdominal pain or tenderness while here in the ED, he does still feel mildly nauseated but no vomiting while here in the ED. He did have Zofran 4 mg IV in route by ambulance. We'll give a dose of Reglan 5 mg IV now. White blood count did come back elevated with strong neutrophil count. This may be a bacterial food poisoning rather than a viral stomach flu. Therefore I am going to give him Levaquin 500 mg IV now and then have him take 250 mg Levaquin orally for the next 3 days. Discharge instructions as documented Departure - Departure Time of Disposition: 06:45 Disposition: Home, Self-Care 01 Condition: Fair Clinical Impression: Vomiting, Diarrhea - Discharge Information Prescriptions: Levofloxacin [Levaquin] 250 mg PO DAILY #3 tablet Ondansetron [Zofran ODT] 4 mg PO Q6H PRN #7 tab.dis PRN Reason: Nausea/Vomiting Referrals: PCP,None [Primary Care Provider] - Forms: ED Department Discharge Additional Instructions: Clear liquids until this evening or until symptoms of nausea vomiting and diarrhea resolving, then very careful bland diet as tolerated, Zofran every 6-8 hours if needed for any further nausea or vomiting, Levaquin antibiotic has been given while here in the ED, continue that with the next dose tomorrow, 250 mg daily for the next 3 days. Follow-up clinic as needed if not much better within 1-2 days as expected, return to ED if symptoms worsening in any way. - My Orders Last 24 Hours: My Active Orders 01/14/17 04:10 Peripheral IV Care [RC] . DIRECTED Sodium Chloride 0.9% [Saline Flush] 10 ml FLUSH ASDIRECTED PRN Peripheral IV Insertion Adult [OM.PC] Stat 01/14/17 04:30 Dextrose 5%-0.45% NaCl [Dextrose 5%-1/2 NS] 1,000 ml IV ASDIRECTED 01/14/17 05:56 Levofloxacin/Dextrose 5%-Water [Levaquin in D5W 500 MG/100 ML] 500 mg Premix Bag 1 bag IV ONETIME - Assessment/Plan Last 24 Hours: My Active Orders 01/14/17 04:10 Peripheral IV Care [RC] . DIRECTED Sodium Chloride 0.9% [Saline Flush] 10 ml FLUSH ASDIRECTED PRN Peripheral IV Insertion Adult [OM.PC] Stat 01/14/17 04:30 Dextrose 5%-0.45% NaCl [Dextrose 5%-1/2 NS] 1,000 ml IV ASDIRECTED 01/14/17 05:56 Levofloxacin/Dextrose 5%-Water [Levaquin in D5W 500 MG/100 ML] 500 mg Premix Bag 1 bag IV ONETIME
[2017-01-14] MEDS ORDERED: Dextrose 5%-0.45% NaCl 1,000 ML IV SCH (04:30)
[2017-01-14] MEDS ORDERED: Levofloxacin/Dextrose 5%-Water 500 MG in Premix Bag 1 BAG IV ONE (05:56)
[2017-01-14] MEDS ORDERED: Metoclopramide 10 MG/2 ML SDV IVPUSH ONE (05:57)
[2017-01-14 06:24] VITALS: BP 217/83
== END 2017-01-14 08:16 | disposition home or self-care (01) ==
LOC: JD.ED 04:00
DX: R11.2 Nausea with vomiting, unspecified (principal); R19.7 Diarrhea, unspecified; I12.9 Hypertensive chronic kidney disease with stage 1 through stage 4 chronic kidney disease, or unspecified chronic kidney disease; E11.22 Type 2 diabetes mellitus with diabetic chronic kidney disease; N18.9 Chronic kidney disease, unspecified; Z79.82 Long term (current) use of aspirin; Z79.899 Other long term (current) drug therapy; Z87.891 Personal history of nicotine dependence; Z88.2 Allergy status to sulfonamides
CPT/HCPCS: 36415; 80053; 85025; 96361; 96365; 96375; 99284; J1956; J2765; J7042; J7050

== ENCOUNTER 2017-02-21 17:11 | Emergency (ER) | payer MEDICARE, OTHER ==
[2017-02-21 17:21] VITALS: BP 230/94
[2017-02-21] MEDS ORDERED: Metoprolol Tartrate 50 MG Tab PO ONE (17:37)
--- NOTE | 2017-02-21 18:03 | EDM.PDOC ---
ED HPI GENERAL MEDICAL PROBLEM - General Chief Complaint: Laceration Stated Complaint: FALL/ARM INJURY Time Seen by Provider: 02/21/17 17:23 Source of Information: Reports: Patient, Family History Limitations: Reports: No Limitations - History of Present Illness INITIAL COMMENTS - FREE TEXT/NARRATIVE: The patient was walking out of a store and the rug was curled up and he tripped on it and fell. He landed on both forearms. He also hit the bridge of his nose. He had no LOC. He has no pain. His nose has no pain but he has an area of ecchymosis. Both forearms have skin tears and there is no pain upon palpation. He went to the walk in clinic and they sent him up here because his blood pressure was high at 224 systolic. He denies headache, chest pain, shortness of breath, abdominal pain, nausea, or vomiting. He is unsure of when his last tetanus was. Onset: Sudden Duration: Minutes: Location: Reports: Face, Upper Extremity, Left, Upper Extremity, Right Improves with: Reports: None Worsens with: Reports: None Associated Symptoms: Reports: No Other Symptoms Bilateral Arm Pain Score (Numeric/FACES): 3 - Related Data Allergies Allergy/AdvReac Type Severity Reaction Status Date / Time Sulfa (Sulfonamide Allergy Itching Verified 01/14/17 04:03 Antibiotics) Home Meds: Home Meds Aspirin 81 mg PO DAILY 06/11/16 [History] Calcipotriene [Calcitrene] 1 applic TOP BEDTIME PRN 06/11/16 [History] Calcium Carbonate/Vitamin D3 [Calcium 600 + Vit D 200] 1 tab PO DAILY 06/11/16 [ History] Enzalutamide [Xtandi] 160 mg PO DAILY 06/11/16 [History] Lisinopril [Zestril] 40 mg PO DAILY 06/11/16 [History] Metoprolol Succinate 50 mg PO DAILY 06/11/16 [History] Simvastatin [Zocor] 40 mg PO DAILY 06/11/16 [History] cloNIDine [Catapres] 0.2 mg PO BEDTIME 06/11/16 [History] Clotrimazole/Betamethasone Dip [Lotrisone Cream] 1 dose TOP ASDIRECTED PRN 01/14 [History] Dyrenium 50 mg PO DAILY 02/21/17 [History] glipiZIDE [Glucotrol] 5 mg PO BID 02/21/17 [History] Past Medical History HEENT History: Reports: Impaired Vision Cardiovascular History: Reports: High Cholesterol, Hypertension Gastrointestinal History: Reports: Diverticulosis, GERD, Pancreatitis Other Gastrointestinal History: cholecystitis Genitourinary History: Reports: Chronic Renal Insuffiency Neurological History: Reports: Other (See Below) Other Neuro History: confusion Psychiatric History: Reports: Anxiety, Depression Endocrine/Metabolic History: Reports: Diabetes, Type II Hematologic History: Reports: Blood Transfusion(s) Oncologic (Cancer) History: 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, Squamous Cell Carcinoma Other Oncologic History: skin cancer Dermatologic History: Reports: Psoriasis, Other (See Below) Other Dermatologic History: vitiligo - Past Surgical History HEENT Surgical History: Reports: Cataract Surgery, Oral Surgery, Tonsillectomy GI Surgical History: Reports: Cholecystectomy Male Surgical History: 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ctomy Dermatological Surgical History: Reports: Other (See Below) Social & Family History - Family History Family Medical History: Noncontributory Oncologic: 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, Other (See Below) Other Oncologic Family History: melanoma - Tobacco Use Smoking Status *Q: Former Smoker Years of Tobacco use: 42 Packs/Tins Daily: 1 Used Tobacco, but Quit: Yes Month Tobacco Last Used: 20 - Caffeine Use Caffeine Use: Reports: Coffee - Recreational Drug Use Recreational Drug Use: No - Living Situation & Occupation Living situation: Reports: , with Spouse, Assisted Living Occupation: Retired ED ROS GENERAL - Review of Systems Review Of Systems: See Below Constitutional: Reports: No Symptoms HEENT: Reports: Other (Ecchymosis to the bridge of the nose) Respiratory: Reports: No Symptoms Cardiovascular: Reports: No Symptoms Endocrine: Reports: No Symptoms GI/Abdominal: Reports: No Symptoms : Reports: No Symptoms Musculoskeletal: Reports: Other (Abrasion to the right arm and a skin tear to the left arm) ED EXAM, SKIN/RASH Exam: See Below Exam Limited By: No Limitations General Appearance: Alert, No Apparent Distress Ears: Normal External Exam Nose: Other (Mild edema and ecchymosis to the bridge of the nose with no tenderness, instability or deformity) Head: Normocephalic Neck: Normal Inspection, Supple, Non-Tender Respiratory/Chest: No Respiratory Distress, Lungs Clear, Normal Breath Sounds Cardiovascular: Regular Rate, Rhythm, No Edema, No Murmur GI/Abdominal: Soft, Non-Tender, No Organomegaly, No Mass Back Exam: Normal Inspection Extremities: Other (abrasion to the right forearm and a skin tear to the left forearm with no pain upon palpation.) Course - Vital Signs Last Recorded V/S: Last Vital Signs Temp 97.5 F 02/21/17 17:20 Pulse 82 02/21/17 17:20 Resp 14 02/21/17 17:20 BP 230/94 H 02/21/17 17:20 Pulse Ox 98 02/21/17 17:20 - Orders/Labs/Meds Meds: Medications Discontinued Medications Generic Name Dose Route Start Last Admin Trade Name Freq PRN Reason Stop Dose Admin Metoprolol Tartrate 50 mg 02/21/17 17:37 Lopressor PO 02/21/17 17:38 ONETIME ONE - Re-Assessments/Exams Free Text/Narrative Re-Assessment/Exam: 02/21/17 18:04 I was going to give him some metoprolol but his family refused. I do not feel he needs any x-rays. I will have my nurse clean his wounds and dress them. 02/21/17 18:20 His daughter showed up and she was okay with his BP that high. She says when he is at the clinic it is that high. She requested he not get anything. I am okay with that. I will discharge him home. Departure - Departure Time of Disposition: 18:25 Disposition: Home, Self-Care 01 Condition: Good Clinical Impression: Fall Qualifiers: Encounter type: initial encounter Qualified Code(s): W19.XXXA - Unspecified fall, initial encounter Abrasion of right forearm Qualifiers: Encounter type: initial encounter Qualified Code(s): S50.811A - Abrasion of right forearm, initial encounter Skin tear of left forearm without complication Qualifiers: Encounter type: initial encounter Qualified Code(s): S51.812A - Laceration without foreign body of left forearm, initial encounter Contusion of nose Qualifiers: Encounter type: initial encounter Qualified Code(s): S00.33XA - Contusion of nose, initial encounter Hypertension Qualifiers: Hypertension type: essential hypertension Qualified Code(s): I10 - Essential ( primary) hypertension - Discharge Information Referrals: David Reyes Jr, MD [Primary Care Provider] - 1 Week Forms: ED Department Discharge Additional Instructions: Clean the wound with warm soapy water 2 times per day and apply antibiotic ointment after. Look for any signs of infection such as redness, swelling, pain or drainage. If you see any of these signs, follow up with your doctor. You may need antibiotics. Continue your medication as prescribed.
== END 2017-02-21 18:30 | disposition home or self-care (01) ==
LOC: JD.ED 17:11
DX: S51.812A Laceration without foreign body of left forearm, initial encounter (principal); S50.811A Abrasion of right forearm, initial encounter; S00.33XA Contusion of nose, initial encounter; I10 Essential (primary) hypertension; E11.9 Type 2 diabetes mellitus without complications; E78.00 Pure hypercholesterolemia, unspecified; Z88.2 Allergy status to sulfonamides; Z79.82 Long term (current) use of aspirin; Z87.891 Personal history of nicotine dependence; Z79.84 Long term (current) use of oral hypoglycemic drugs; Z79.899 Other long term (current) drug therapy; W01.118A Fall on same level from slipping, tripping and stumbling with subsequent striking against other sharp object, initial encounter
CPT/HCPCS: 99282; 99283